=== PATIENT | male | born 1995 | race Caucasian/White ===

== ENCOUNTER 2017-12-23 22:37 | Emergency (ER) | payer BC ==
[~2017-12-23] VITALS: Ht 182.9 cm; Wt 71.5 kg
[~2017-12-23 22:37] MED LIST: [UNRECOGNIZED DRUG - CODE] PO
[2017-12-23 22:38] VITALS: TEMP 36.7; Ht 182.9 cm; Wt 71.5 kg
[2017-12-23] MEDS ORDERED: CEFTRIAXONE SOD 350MG/ML 1 GM VIAL IM ONE (23:15)
[2017-12-23] MEDS ORDERED: AZITHROMYCIN 250 MG TAB PO ONE (23:15)
[2017-12-23] MEDS ORDERED: VALA1TAB2 PO (23:16)
[2017-12-23] MEDS ORDERED: DOXY100T17 PO (23:16)
--- NOTE | 2017-12-23 23:17 | EMERGENCY ROOM VISIT NOTE ---
History Report prepared by Archana: Qiana Deluna Under the Supervision of: Marcello BlancasO. First contact with patient: 22:53 Chief Complaint: URINARY SYMPTOMS Stated Complaint: KIDNEY STONES OR UTI History of Present Illness The patient is a 22 year old male who presents to the Emergency Room with complaints of persistent urinary symptoms that began a few hours ago. He reports that today he noticed some burning while urinating, noting that it continued throughout the day. After urinating, he noticed some white particles on his urethra. The patient also notes that he has been urinating less than usual. He denies any back pain, testicular pain, rashes through his groin, blood in urine, fevers, or chills. The patient states that he had similar symptoms about 2 years ago, noting that he went to [facility] and they treated for STI' s but they did not determine the exact cause of his symptoms. He reports that he is sexually active, but notes that his partner has not been having any symptoms. The patient states a history of psoriasis and hernias. Source of History: patient Onset: today Position: other (urinary tract) Quality: other (urinary symptoms) Timing: other (persistent) Associated Symptoms: No fevers, No chills, No back pain, No rash (rashes through his groin) Note: Associated symptoms include: white particles on his urethra and urinating less than usual. Patient denies any: testicular pain and blood in urine. Review of Systems See HPI for pertinent positives & negatives. A total of 10 systems reviewed and were otherwise negative. Past Medical & Surgical Medical Problems: (1) HSV-1 (herpes simplex virus 1) infection (2) Psoriasis (3) Tobacco use disorder Family History Patient reports no known family medical history. Social History Smoking Status: Former Smoker Alcohol Use: occasionally (about 10 beers per week) Drug Use: none Marital Status: single Housing Status: lives with roommate Occupation Status: [employer] student Current/Historical Medications Scheduled Desoximetasone (Topicort), 1 APPLN TOP BID Doxycycline (Monohydrate) (Doxycycline Monohydrate), 100 MG PO BID Valacyclovir Hcl (Valtrex), 1,000 MG PO TID Allergies Coded Allergies: No Known Allergies (Unverified , 12/23/17) Physical Exam Vital Signs Date Time Temp Pulse Resp B/P (MAP) Pulse Ox O2 Delivery O2 Flow Rate FiO2 12/24/17 00:09 85 16 139/72 100 12/23/17 22:38 36.7 90 16 141/90 100 Room Air Physical Exam GENERAL: Patient is awake, alert, and in no acute distress. Patient is resting comfortably and showing no signs of anxiety EYES: The conjunctivae are clear. The pupils are round and reactive. EARS, NOSE, MOUTH AND THROAT: The nose is without any evidence of any deformity. Mucous membranes are moist tongue is midline NECK: The neck is nontender and supple. RESPIRATORY: Normal respiratory effort is noted there is no evidence of wheezing rhonchi or rales CARDIOVASCULAR: Regular rate and rhythm noted there no murmurs rubs or gallops normal S1 normal S2 GASTROINTESTINAL: The abdomen is soft. Bowel sounds are present in all quadrants. Abdomen is nontender : Circumcised male genitalia noted. Testicles descended and non-tender bilaterally. Erythema noted to urethra mucosa with white discharge noted on mucosa. BACK: No midline tenderness or or step-off noted range of motion in flexion extension as well as rotation no signs of muscle spasm noted MUSCULOSKELETAL/EXTREMITIES: There is no evidence of gross deformity full range of motion is noted in the hips and shoulders SKIN: There is no obvious evidence of any rash. There are no petechiae, pallor or cyanosis noted. NEUROLOGIC: Patient is awake alert and oriented x3 strength is symmetric patellar reflexes are 2+ bilaterally Medical Decision & Procedures Laboratory Results Test 12/23/17 22:45 12/23/17 23:10 Urine Color YELLOW Urine Appearance CLEAR (CLEAR) Urine pH 7.5 (4.5-7.5) Urine Specific [place] 1.013 (1.000-1.030) Urine Protein NEG (NEG) Urine Glucose (UA) NEG (NEG) Urine Ketones NEG (NEG) Urine Occult Blood NEG (NEG) Urine Nitrite NEG (NEG) Urine Bilirubin NEG (NEG) Urine Urobilinogen NEG (NEG) Urine Leukocyte Esterase NEG (NEG) Laboratory results per my review. Medications Administered Medications (Trade) Dose Ordered Sig/Evelin Route Start Time Stop Time Status Last Admin Dose Admin Ceftriaxone Sodium (Rocephin Im) 250 mg NOW ONCE IM 12/23/17 23:15 12/23/17 23:16 DC 12/23/17 23:33 250 MG Azithromycin (Zithromax Tab) 1,000 mg NOW ONCE PO 12/23/17 23:15 12/23/17 23:16 DC 12/23/17 23:32 1,000 MG Valacyclovir HCl (Valtrex Tab) 1,000 mg NOW ONCE PO 12/23/17 23:15 12/23/17 23:16 DC 12/23/17 23:32 1,000 MG ED Course 2300: The patient was evaluated in room B6. A complete history and physical examination were performed. 2315: Ordered Valtrex Tab 1000 mg PO, Zithromax Tab 1000 mg PO, and Rocephin Im 250mg. 0002: Upon reevaluation, the patient is resting comfortably and feeling significantly better. I discussed the results and treatment plan with him. He verbalized agreement of the treatment plan. The patient was discharged home. Medical Decision Nursing notes reviewed. Differential diagnosis the patient could include infectious urethritis, inflammatory urethritis, herpes infection, gonorrhea, chlamydia, and other differential diagnoses were considered. The patient is a 22-year-old male who presented to the emergency department with urethritis symptoms. The patient did not appear to have an abnormal urine. The patient on physical exam had some discharge as well as her edema noted of the mucosa of the urethra. I feels overlying condition is consistent with urethritis. Given his history he was started on antibiotics as well as coverage for herpes. He was also encouraged to follow-up with [facility] this week for reevaluation as well as for culture results. He was encouraged to avoid any sexual contact until he was completely asymptomatic and tests were returned. Medication Reconcilliation Current Medication List: was personally reviewed by me Blood Pressure Screening Patient's blood pressure: Normal blood pressure Blood pressure disposition: Did not require urgent referral Impression Primary Impression: Urethritis Scribe Attestation The scribe's documentation has been prepared under my direction and personally reviewed by me in its entirety. I confirm that the note above accurately reflects all work, treatment, procedures, and medical decision making performed by me. Departure Information Dispostion Home / Self-Care Prescriptions Doxycycline (Monohydrate) (DOXYCYCLINE MONOHYDRATE) 100 Mg Tab 100 MG PO BID, #20 TABS Prov: Osman Duffy, DO 12/23/17 Valacyclovir Hcl (VALTREX) 1 Gm Tab 1000 MG PO TID, #21 TAB Prov: Osman Duffy, DO 12/23/17 Referrals No Doctor, Assigned (PCP) Forms HOME CARE DOCUMENTATION FORM, IMPORTANT VISIT INFORMATION Patient Instructions My [facility] trinket Additional Instructions Continue to use protection with any sexual intercourse until you are completely asymptomatic and cultures have returned. Continue all medications as prescribed. Follow-up with [facility] this week for reevaluation. Return the emergency department immediately if symptoms change worsen or the need arises.
[2017-12-23] MEDS ORDERED: DESO0.258 TOP (23:33)
[2017-12-24 00:09] VITALS: BP 139/72; PULSE 85; O2SAT 100
[2017-12-26 11:30] LABS: HERPES SIMPLEX VIRUS CULT NOT ISOLATED (NOT ISOLATED)
== END 2017-12-24 00:10 | disposition home or self-care (01) ==
LOC: C.EDB 22:38
DX: R30.0 Dysuria (principal); L40.9 Psoriasis, unspecified; B00.9 Herpesviral infection, unspecified; Z87.891 Personal history of nicotine dependence; N34.2 Other urethritis